=== PATIENT | female | born 1945 | race Caucasian/White ===

== ENCOUNTER 2016-10-04 18:19 | Emergency (ER) | payer MEDICARE, OTHER ==
--- NOTE | 2016-10-04 18:42 | Emergency Department Record ---
History of Present Illness - General Chief Complaint: Knee injury Stated Complaint: KNEE INJURY/FALL Time Seen by Provider: 10/04/16 18:37 Source: Patient Mode of Arrival: Ambulatory - History of Present Illness Initial Comments: The patient was outside in the yard today when she tripped over a downspout landing on her left knee. She denies other injury. She denies prior injury. She took aleve prior to arrival. Complaint: Knee injury Onset/Timin -: Hour(s) Type of Injury: Blunt Place: Home Severity: Moderate Severity scale (1-10): 6 Improves With: Immobilization Worsens With: Weight bearing Context: Fall Associated Symptoms: Able to partially bear weight Treatments Prior to Arrival: Cold therapy - Related Data Home Medications Medication Instructions Recorded Confirmed Last Taken Albuterol Sulfate [Ventolin Hfa] 1 inh INH DAILY 10/04/16 10/04/16 10/04/16 Atorvastatin Calcium 20 mg PO QHS 10/04/16 10/04/16 10/04/16 Folic Acid [Folic Acid] 1 mg PO DAILY 10/04/16 10/04/16 10/04/16 Allergies Allergy/AdvReac Type Severity Reaction Status Date / Time Penicillins Allergy PT UNSURE Verified 10/04/16 18:29 OF REACTION Travel Screening - Travel/Exposure Within Last 30 Days Have you traveled within the last 30 days?: No Review of Systems Reviewed: No additional complaints except as noted below Constitutional: Reports: As per HPI. Denies: Chills, Fever, Malaise, Night sweats, Weakness, Weight change Eyes: Reports: As per HPI. Denies: Eye discharge, Eye pain, Photophobia, Vision change ENT: Reports: As per HPI. Denies: Congestion, Dental pain, Ear pain, Epistaxis , Hearing loss, Throat pain Respiratory: Reports: As per HPI. Denies: Cough, Dyspnea, Hemoptysis, Stridor, Wheezes Cardiovascular: Reports: As per HPI. Denies: Arrhythmia, Chest pain, Dyspnea on exertion, Edema, Murmurs, Orthopnea, Palpitations, Paroxysmal nocturnal dyspnea, Rheumatic Fever, Syncope Endocrine: Reports: As per HPI. Denies: Fatigue, Heat or cold intolerance, Polydipsia, Polyuria Gastrointestinal: Reports: As per HPI. Denies: Abdominal pain, Constipation, Diarrhea, Hematemesis, Hematochezia, Melena, Nausea, Vomiting Genitourinary: Reports: As per HPI. Denies: Abnormal menses, Discharge, Dyspareunia, Dysuria, Frequency, Hematuria, Incontinence, Retention, Urgency Musculoskeletal: Reports: As per HPI. Denies: Arthralgia, Back pain, Gout, Joint swelling, Myalgia, Neck pain Skin: Reports: As per HPI. Denies: Bruising, Change in color, Change in hair/ nails, Lesions, Pruritus, Rash Neurological: Reports: As per HPI. Denies: Abnormal gait, Confusion, Headache, Numbness, Paresthesias, Seizure, Tingling, Tremors, Vertigo, Weakness Psychiatric: Reports: As per HPI. Denies: Anxiety, Auditory hallucinations, Depression, Homicidal thoughts, Suicidal thoughts, Visual hallucinations Hematological/Lymphatic: Reports: As per HPI. Denies: Anemia, Blood Clots, Easy bleeding, Easy bruising, Swollen glands Past Medical History - SOCIAL HISTORY Smoking Status: Never smoker Alcohol Use: None Drug Use: None - RESPIRATORY Hx Respiratory Disorders: Yes Hx COPD: Yes - CARDIOVASCULAR Hx Cardio Disorders: Yes Comment:: high cholesterol - NEURO Hx Neuro Disorders: No - GI Hx GI Disorders: No - Hx Genitourinary Disorders: No - ENDOCRINE Hx Endocrine Disorders: No - MUSCULOSKELETAL Hx Musculoskeletal Disorders: No - PSYCH Hx Psych Problems: No - HEMATOLOGY/ONCOLOGY Hx Hematology/Oncology Disorders: No Family Medical History Any Significant Family History?: No Physical Exam - General General Appearance: Alert, Oriented x3, Cooperative, No acute distress - Head Head exam: Normal inspection - Eye Eye exam: Normal appearance, PERRL Pupils: Normal accommodation - ENT ENT exam: Normal exam, Mucous membranes moist, Normal external ear exam, Normal orophraynx, TM's normal bilaterally Ear exam: Normal external inspection. negative: External canal tenderness Nasal Exam: Normal inspection. negative: Discharge, Sinus tenderness Mouth exam: Normal external inspection, Tongue normal Teeth exam: Normal inspection. negative: Dental caries Throat exam: Normal inspection. negative: Tonsillar erythema, Tonsillar exudate - Neck Neck exam: Normal inspection, Full ROM. negative: Lymphadenopathy, Meningismus , Tenderness - Respiratory Respiratory exam: Normal lung sounds bilaterally. negative: Respiratory distress - Cardiovascular Cardiovascular Exam: Regular rate, Normal rhythm, Normal heart sounds - GI/Abdominal GI/Abdominal exam: Soft, Normal bowel sounds. negative: Tenderness - Rectal Rectal exam: Deferred - exam: Deferred - Extremities Extremities exam: Normal inspection, Full ROM, Normal capillary refill, Tenderness (left knee swollen, ecchymotic, and painful to even light touch over anterior aspect of knee and patella.). negative: Calf tenderness, Pedal edema - Back Back exam: Reports: Normal inspection, Full ROM. Denies: Muscle spasm, Rash noted, Tenderness - Neurological Neurological exam: Alert, Normal gait, Oriented X3, Reflexes normal - Psychiatric Psychiatric exam: Normal affect, Normal mood - Skin Skin exam: Dry, Intact, Normal color, Warm Course Vital Signs 10/04/16 18:23 Temperature 98.1 F Pulse Rate 87 Respiratory 18 Rate Blood Pressure 164/76 Pulse Ox 96 - Reevaluation(s) Reevaluation #1: Patient declined pain medication. 10/04/16 18:43 Reevaluation #2: The patient prefers to use an mathew wrap rather than knee immobilizer. She states she can weight bear normally and it only hurts over her knee cap. She agrees to see Dr. Baxter in the office next week for a recheck. 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 She will follow up with Dr. Baxter. 10/04/16 19:23 Medical Decision Making - Management Options MDM Management: No Additional Work-up Planned - Data Complexity MDM Data: X-Ray Ordered and/or Reviewed (Left Knee xray: No fracture; chondroma to distal femoral metaphysis; mild arthritic change; STS prepatellar. Per radiologist.) Disposition Disposition: Discharge Clinical Impression: Contusion of left knee Qualifiers: Encounter type: initial encounter Qualified Code(s): S80.02XA - Contusion of left knee, initial encounter Disposition: Home, Self-Care Condition: (1) Good Instructions: Knee Pain (ED) Additional Instructions: Ice, elevate first 48-72 hours. Aleve as needed as directed for pain. Take with food. Mathew wrap to left knee for comfort. Follow up with PCP Dr. Baxter in office next week for recheck.
== END 2016-10-04 19:46 | disposition home or self-care (01) ==
LOC: ER 18:19
DX: S80.02XA Contusion of left knee, initial encounter (principal); W18.09XA Striking against other object with subsequent fall, initial encounter; Y92.096 Garden or yard of other non-institutional residence as the place of occurrence of the external cause
CPT/HCPCS: 99283

== ENCOUNTER 2017-05-21 12:44 | Day surgery (SDC) | payer MEDICARE, OTHER ==
[2017-05-21] MEDS ORDERED: PROPOFOL 10 MG/ML VIAL IV ONE (12:45)
[2017-05-21] MEDS ORDERED: LIDOCAINE 2% MDV (20MG/ML) 20ML VIAL IV ONE (12:45)
--- NOTE | 2017-05-22 10:30 | Operative Note ---
DATE OF SURGERY: 05/21/2017 OPERATION: COLONOSCOPY with cold forceps polypectomy. PREOPERATIVE DIAGNOSIS: History of colon polyps. POSTOPERATIVE DIAGNOSIS: Diminutive sigmoid colon polyp. PREPARATION QUALITY: Good. ESTIMATED BLOOD LOSS: Minimum. SPECIMENS: Sigmoid colon polyp. COMPLICATIONS: None apparent. PROCEDURE: After informed consent was obtained from the patient, she was placed in the left lateral decubitus position in the endoscopy suite, sedated and monitored by the department of anesthesia. Digital rectal examination was unremarkable. A well-lubricated [id number] colonoscope was inserted into the rectum and advanced to the cecum. The cecum and cecal bulb were noted by the ileocecal valve and appendiceal orifice. Preparation quality was good. The cecum, ascending colon, transverse colon, and descending colon were unremarkable. The sigmoid colon revealed a diminutive polyp removed with a cold forceps. The remainder of the sigmoid colon and rectum were unremarkable. J-turn views of the anorectum were unrevealing. The endoscope was straightened, the rectal ampulla deflated, and the endoscope was removed. RECOMMENDATIONS: I suggest the patient resume her medications and diet. She should undergo repeat exam in 5 years. As always, thank you for allowing me to participate in the healthcare of your patients. CC: Nhi ORO
== END 2017-05-21 15:21 | disposition home or self-care (01) ==
LOC: HOP 12:44
PROVIDERS: ATTEND Internal Medicine Gastroenterology
DX: Z12.11 Encounter for screening for malignant neoplasm of colon (principal); Z86.010 Personal history of colon polyps; E78.00 Pure hypercholesterolemia, unspecified; J44.9 Chronic obstructive pulmonary disease, unspecified; D12.5 Benign neoplasm of sigmoid colon